=== PATIENT | male | born 1940 | race Caucasian/White ===

== ENCOUNTER 2020-11-07 17:16 | Inpatient (IN) | payer MEDICARE, OTHER, SELFPAY ==
[2020-11-07] VITALS (12 sets, daily range): BP systolic 160–191; BP diastolic 80–98; PULSE 61–74; RESP 16–20; TEMP 36.2–36.7; O2SAT 95–99; BMI 33.5; BMI 34.4; BMI 33.3; BMI 33.4
--- NOTE | 2020-11-07 17:17 | CT_ITS ---
STUDY: CT HEAD STROKE PROTOCOL W/O CONTRAST INJECTION REASON FOR EXAM: Male, 80 years old. STROKE, LEFT ARM WEAKNESS RADIATION DOSAGE (If Supplied By Facility): CTDIvol = ( 44.99 ) mGy, DLP = ( 863.60 ) mGycm TECHNIQUE: Transaxial CT imaging of the brain was performed without administration of intravenous contrast material. Individualized dose optimization techniques were used for this CT. COMPARISON: No relevant priors. FINDINGS: Normal soft tissue structures. Normal calvarium. There is mild cerebral atrophy with widening of the extra-axial spaces and ventricular dilatation. There are areas of decreased attenuation within the white matter tracts of the supratentorial brain, consistent with microvascular disease changes. Normal basal ganglia and thalami. Normal brainstem. Normal cerebellum. There is no intracranial hemorrhage. There are no findings of an acute ischemic infarction. Normal visualized paranasal sinuses. ASPECT score: CT/STROKE Brain/Head without Cont IMPRESSION: Chronic involutional changes of the brain. N.B. : The above information has been verbally conveyed by Rajesh Carvalho MD to EVAN santana, on 11/07/2020 17:41:04 (ET). Electronically Signed: Rajesh Carvalho MD at 17:41 EST Tel , Service support ,
--- NOTE | 2020-11-07 17:17 | EKG12_ITS ---
Test Reason : NUMB TING Blood Pressure : / mmHG Vent. Rate : 062 BPM Atrial Rate : 062 BPM P-R Int : 170 ms QRS Dur : 146 ms QT Int : 474 ms P-R-T Axes : 028 004 014 degrees QTc Int : 481 ms Normal sinus rhythm Right bundle branch block Abnormal ECG Confirmed by ROD BARBOSA, NEVAEH ([id number]), senior editor MOO RIVAS ([id number]) on 11/10/2020 10:30:16 AM Referred By: YANCY Confirmed By:NEVAEH VELASCO MD
[2020-11-07 17:30] LABS: Absolute Neutrophil Count 3.4 X10^3/uL (2.0-7.7); Basophil# 0.06 X10^3/uL; Basophil% 0.9 % (0-1); Eosinophil# 0.27 X10^3/uL; Eosinophils% 4.2 % (0-5); Hematocrit 40.3 % (40-54); Hemoglobin 13.3 g/dL (13.0-16.5); Lymphocyte % 29.4 % (19-41); Mean Corpuscular Hgb 31.3 pg (27.0-32.0); Mean Corpuscular Volume 94.8 fL (80-94); Mean Platelet Vol. 10.2 fl (6.2-12.0); Monocyte# 0.79 X10^3/uL; Monocyte% 12.2 % (0-10); NRBC Flagged by Analyzer 0 % (0-5); Neutrophil # 3.43 X10^3/uL (2.7-7.7); Neutrophil % 53.1 % (47-70); Platelet Count 293 K/mm3 (150-450); RBC Distribution Width CV 13.3 % (11.6-14.6); RBC Distribution Width SD 45.8 fl (35.1-43.9); Red Blood Count 4.25 M/mm3 (4.6-6.2); White Blood Count 6.5 K/mm3 (4.4-11.0)
[2020-11-07 17:47] LABS: Anion Gap 3 (5-15); BUN 12 mg/dL (7-18); BUN/Creat Ratio 16.9 RATIO (10-20); Calcium,Total 8.9 mg/dL (8.5-10.1); Chloride 108 mmol/L (98-107); Creatinine, Serum 0.71 mg/dL (0.70-1.30); EST Glomerular Filtration Rate 114 mL/min (>60); Est Glom Filt Rate - Afr Amer 138 mL/min (>60); Estimated Creatinine Clearance 64.84 ml/min; Glucose 96 mg/dL (74-106); Sodium Level 139 mmol/L (136-145)
[2020-11-07 17:50] LABS: Prothrombin Time (Protime)PT. 12.9 SECONDS (11.7-14.9)
--- NOTE | 2020-11-07 17:50 | CT_ITS ---
STUDY: CTA HEAD AND NECK WITH CONTRAST REASON FOR EXAM: Male, 80 years old. POSSIBLE STROKE RADIATION DOSAGE (If Supplied By Facility): CTDIvol = ( 20.62 ) mGy, DLP = ( 873.60 ) mGycm TECHNIQUE: CT angiography was performed with a multi-detector CT scanner. Data acquisition was obtained from the skull base through the vertex following intravenous administration of IV 100mL [id number]-300. MIP images were reconstructed from the axial data set. Post-processing of the angiographic images was performed, with multiplanar reformation and 3D reconstruction. Individualized dose optimization techniques were used for this CT. COMPARISON: No relevant priors. FINDINGS: Normal bilateral petrous carotid arteries. Normal right cavernous carotid artery with a normal supraclinoid bifurcation. Normal left cavernous carotid artery with a normal supraclinoid bifurcation. Normal right A1 segments of the anterior cerebral artery. Normal left A1 segments of the anterior cerebral artery. Normal intact anterior communicating artery (ACOM). Normal bilateral A2 segments of the anterior cerebral arteries. Normal right M1 and M2 segments of the middle cerebral arteries, with a normal M1 bifurcation. Normal left M1 and M2 segments of the middle cerebral arteries, with a normal M1 bifurcation. Normal right posterior communicating artery (PCOM). Normal left posterior communicating artery (PCOM). There is a small atretic left vertebral artery with a dominant right vertebral artery. The small left vertebral artery terminates as the left posterior inferior cerebral artery. Normal basilar artery with a normal basilar bifurcation. The visualized bilateral superior cerebellar (SCA) arteries are normal. Normal bilateral P1, P2 and visualized P3 segments of the posterior cerebral arteries. There is no demonstrated aneurysm of the [place] of [place]. There is no demonstrated abnormality of the visualized brain. AORTIC ARCH: Normal visualized aortic arch. Normal origins of the brachiocephalic, left common carotid, and left subclavian arteries. RIGHT CAROTID ARTERIES: Normal right common carotid artery (CCA). There is mild atherosclerotic plaque formation with minimal narrowing of the right carotid bulb. There is mild atherosclerotic plaque formation of the origin of the right internal carotid artery with less than 50% cross sectional diameter stenosis. Normal visualized cervical portion of the right internal carotid artery. Normal origin of the right external carotid artery (ECA). LEFT CAROTID ARTERIES: Normal left common carotid artery (CCA). Normal left common carotid bulb. Normal origin of the left internal carotid (ICA) artery without a hemodynamically significant stenosis. Normal visualized cervical portion of the left internal carotid artery. Normal origin of the left external carotid artery (ECA). VERTEBRAL ARTERIES: Normal bilateral vertebral arteries. CT/STROKE CTA Head AND Neck W/Con IMPRESSION: 1. Mild (40%) right carotid stenosis. 2. No left carotid stenosis. 3. Patent vertebral arteries bilaterally. The left vertebral artery is hypoplastic and terminates as the left posterior inferior cerebellar artery. 4. No intracranial stenosis or aneurysm. N.B. : The above information has been verbally conveyed by Rajesh Carvalho MD to EVAN santana, on 11/07/2020 18:40:42 (ET). Electronically Signed: Rajesh Carvalho MD at 18:42 EST Tel , Service support ,
[2020-11-07 17:51] LABS: Partial Thromboplast Time 26.2 Seconds (24.1-36.2)
--- NOTE | 2020-11-07 18:00 | ED.VISSUMM ---
- ER Visit Summary Date of Service: 11/07/20 Chief Complaint: Left upper and lower extremity weakness History of Present Illness: The patient is a [address] Jane in [place]. He reports that he was at his brother's viewing this afternoon when he began to feel lightheaded and his vision blurred. He then states that his left arm and leg became numb and he was unable to move them. This started approximately 1615. Shortly after EMS arrived his symptoms resolved. He denies any neurologic symptoms at this time. Squad reports that he was off balance when they stood him to get on the cot. Patient denies any other recent illness. No fever or chills. No chest pain, cough, or difficulty breathing. He reports he had a similar episode and went to another hospital 1 week ago. He was not admitted at that time. He does have a history of a stroke back in 2011. Physical Examination: Vitals: Stable. Afebrile. General: Well-nourished and well-developed. Head: Normocephalic atraumatic. Neck: Supple, no lymphadenopathy. No JVD. Nontender. Cardiovascular: Regular rate and rhythm. No murmurs. Respiratory: No respiratory distress. Clear to auscultation bilaterally. Abdominal: Soft, nontender, nondistended, normal bowel sounds. No guarding, rebound, or peritoneal signs. Back: Nontender. Extremities: Nontender, no edema. Skin: Normal color, no rash. Neurologic: Alert and oriented ?3. Cranial nerves II through XII are intact. Normal strength and sensation. NIH is 0. Psych: Normal affect. Test Results: EKG is sinus at 62 with a right bundle branch block. No ischemic changes. CBC shows monocytes of 12. Chem-7 shows a chloride of 108. INR is 1.0. PTT is 26.2. Troponin is negative. Clinical Impression(s) from Imaging Studies Brain CT 11/07/20 17:17 IMPRESSION: Chronic involutional changes of the brain. N.B. : The above information has been verbally conveyed by Rajesh Carvalho MD to EVAN santana, on 11/07/2020 17:41:04 (ET). Electronically Signed: Rajesh Carvalho MD at 17:41 EST Tel , Service support , ADDENDUM: 11/07/20 1748 IMPRESSION: Chronic involutional changes of the brain. N.B. : The above information has been verbally conveyed by Rajesh Carvalho MD to EVAN santana, on 11/07/2020 17:41:04 (ET). Electronically Signed: Rajesh Carvalho MD at 17:41 EST Tel , Service support , Head/Neck CTA 11/07/20 17:50 IMPRESSION: 1. Mild (40%) right carotid stenosis. 2. No left carotid stenosis. 3. Patent vertebral arteries bilaterally. The left vertebral artery is hypoplastic and terminates as the left posterior inferior cerebellar artery. 4. No intracranial stenosis or aneurysm. N.B. : The above information has been verbally conveyed by Rajesh Carvalho MD to EVAN santana, on 11/07/2020 18:40:42 (ET). Electronically Signed: Rajesh Carvalho MD at 18:42 EST Tel , Service support , ADDENDUM: 11/07/20 1849 IMPRESSION: 1. Mild (40%) right carotid stenosis. 2. No left carotid stenosis. 3. Patent vertebral arteries bilaterally. The left vertebral artery is hypoplastic and terminates as the left posterior inferior cerebellar artery. 4. No intracranial stenosis or aneurysm. N.B. : The above information has been verbally conveyed by Rajesh Carvalho MD to EVAN santana, on 11/07/2020 18:40:42 (ET). Electronically Signed: Rajesh Carvalho MD at 18:42 EST Tel , Service support , Chest X-Ray 11/07/20 18:05 IMPRESSION: Normal x-ray examination of the chest. Electronically Signed: Rajesh Carvalho MD at 18:19 EST Tel , Service support , Emergency Department Course and Treatment: Patient was seen upon arrival approximately an hour after onset of symptoms. His symptoms have completely resolved and his NIH scale is 0. He was discussed with the neurologist from [facility] who is also examined him. He is not a TPA candidate. I was in talking with the patient at 1845 and he was completely normal. His arrived at 1850 he complained that he was unable to lift his left leg again. Repeat NIH score was 4. I paged the neurologist and the nurse went in to examine him and his symptoms had completely resolved by 1900. His NIH scale is 0 again. The patient was discussed with the neurologist from [facility] again. She reports that with an NIH of 0 she would not give TPA at this time. However, because his NIH is 0 his timeframe resets and that if he has weakness again that she should be contacted for further consultation about the possibility of TPA. Treatment Plan: The patient was discussed with Dr. Ceballos and will be admitted for further evaluation and treatment. His NIH scale remains 0. Disposition: Admitted in stable condition. Impression: 1. Left sided weakness. 2. Right internal carotid artery 40% stenosis. 3. Critical care time 33 minutes. This note was generated with Gamblino[employer] software. It may contain incorrect words, spelling, and punctuation that were not noted in review of the chart prior to signing ED Disposition - Plan for ED Patient: Referrals: Evangleista Jane DO [Primary Care Provider] -
--- NOTE | 2020-11-07 18:05 | RAD_ITS ---
STUDY: X-RAY CHEST REASON FOR EXAM: Male, 80 years old. Neuro deficit, acute, stroke suspected TECHNIQUE: Single AP portable view of the chest. COMPARISON: None. FINDINGS: Status post anterior cervical discectomy and fusion in the lower cervical spine. The lungs are clear and expanded. There is no demonstrated pleural abnormality. Normal size heart. Normal mediastinum and cal. Normal visualized pulmonary arteries. Normal visualized aortic arch and descending thoracic aorta. Normal visualized thoracic spine. Normal visualized ribs, clavicles, and shoulders. There is no demonstrated abnormality of the visualized soft tissue structures of the upper abdomen. RAD/Chest 1 View IMPRESSION: Normal x-ray examination of the chest. Electronically Signed: Rajesh Carvalho MD at 18:19 EST Tel , Service support ,
--- NOTE | 2020-11-07 19:25 | PCM.HP.STD ---
Problem List (1) TIA (transient ischemic attack) Status: Inactive (2) Hypertension Status: Chronic Qualifiers: Hypertension type: essential hypertension Qualified Code(s): I10 - Essential (primary) hypertension History of Present Illness Date of Admission: 11/07/20 Chief Complaint: Left-sided weakness The patient is a 80 year old M with past medical history of TIA, history of multiple surgeries to the neck and back who lives in [facility] and was induced for his brother's phone. He was sitting during the service, when his son noticed that his left-side was weak. She stated that he felt lightheaded and his vision was blurred. His left arm in leg became numb he was unable to move it. States her pain around 1615. It lasted for a few minutes. It resolved completely by the time the EMS got there. Reported that he was ataxic for the EMS. Has a history of mini stroke in 2011. He has history of recurrent neck and back pains. Patient's admitting NIHSS was 0 at the time of being seen. He was said not to be a TPA candidate. However at 1845, and was noted not to be able to lift his left leg again. Repeat NIHSS score was 4. The neurologist was paged. Reexam showed NIHSS score of 0. [facility] neurologist told ED physician that showed patient have symptoms again, they should be contacted for possibility of TPA. Patient denied any symptoms at the time of being seen. Vitals were stable except for uncontrolled hypertension. Admitting blood work was also unremarkable. Brain CT showed chronic involuntary changes. CTA of the head and neck showed right carotid stenosis, 40%. EKG showed normal sinus rhythm, no ST-T changes. Past Medical History Past Medical History (Chronic Problems): Chronic Problems Hypertension (Chronic) Allergies No Known Allergies Allergy (Verified 11/07/20 17:41) Home Medications: Ambulatory Orders Medication Instructions Recorded Aspirin 325 mg PO DAILY@0800 11/07/20 Lisinopril 20 mg PO DAILY 11/07/20 Multivit-Min/FA/Lycopen/Lutein 1 ea PO DAILY 11/07/20 [Centrum Silver Men Tablet] Psyllium Husk/Aspartame [Metamucil 1,320 gm PO DAILY 11/07/20 Powder] Surgical History: cholecystectomy, total knee arthroplasty - Bilateral, - - Multiple back and neck surgeries Psychiatric History: No pertinent psych hx Lives: Spouse/ Significant Other Smoking Status: Never smoker Tobacco Use: Non-smoker Alcohol: None Drugs: None - *Family History Maternal History Items: Heart Disease Paternal History Items: Unknown Review of Systems Constitutional: Denies: Anorexia, Chills, Fever, Malaise, Weakness, Weight Change, Fatigue Eyes: Denies: Blurred vision, Cataracts, Conjunctivae Inflammation, Pain, Redness, Vision Change HEENT: Reports: Hard of Hearing. Denies: Difficulty Hearing, Difficulty Swallowing, Head Aches, Hearing Changes, Sinus Congestion, Sinus Drainage Cardiovascular: Denies: Chest Pain, Claudication, Orthopnea, Palpitations, Paroxysmal Noc. Dyspnea Respiratory: Denies: Cough, Hemoptysis, Shortness of breath at rest, Shortness of breath upon exertion, Sputum production Gastrointestinal: Denies: Abdominal Pain, Hematemesis, Hematochezia, Nausea, Vomiting Genitourinary: Denies: Dysuria, Frequency, Incontinence Musculoskeletal: Denies: Joint Pain, Joint stiffness, Joint swelling, Joint Tenderness, Muscle pain Skin: Denies: Dryness, Pruritis, Rash, Wounds Neurological: Denies: Difficulty swallowing, Focal weakness, Numbness, Tingling Psychiatric: Denies: Anxiety, Depression, Homicidal Ideations, Suicidal Ideations Hematologic/ Lymphatic: Denies: Easy Bruising, Easy Bleeding VTE Information - Inpt Only VTE Present on Admission: No VTE Pharm Prophylaxis ordered?: Yes - Physical Exam Vitals/I&O's: Vital Signs Temp Pulse Resp BP Pulse Ox 97.1 F L 63 16 160/84 H 98 11/07/20 17:34 11/07/20 19:00 11/07/20 19:00 11/07/20 19:00 11/07/20 19:00 Oxygen Delivery Method Room Air Weight: 112.2 kg Body Mass Index (BMI) 34.4 Finger Stick Blood Glucose 98 General: Alert, Oriented x3, Cooperative, No apparent distress, - - obese HEENT: Atraumatic, PERRLA, EOMI, Normocephalic Oral: Moist Mucosa Neck: Supple Lungs: Clear to auscultation, Normal air movement Cardiovascular: Regular rate, Regular Rhythm, Normal S1, Normal S2, No murmurs Abdomen: Bowel Sounds Present, Soft, Non Tender, Non-Distended, No Hepato-splenomegaly Extremities: No edema Skin: No rashes Musculoskeletal: No Tenderness to Palpation of Joints or Extremities Lymphatic: No Cervical, Supraclavicular, or Inguinal Adenopathy Neurological: Cranial nerves II-XII grossly intact, Neuro grossly intact Psych/Mental Status: Normal Affect, Appropriate Laboratory Results 11/07/20 17:10: WBC 6.5, RBC 4.25 L, Hgb 13.3, Hct 40.3, MCV 94.8 H, MCH 31.3, MCHC 33.0, RDW Std Deviation 45.8 H, RDW Coeff of Alfonzo 13.3, Plt Count 293, MPV 10.2, Immature Gran % (Auto) 0.200, Neut % (Auto) 53.1, Lymph % (Auto) 29.4, [place] % (Auto) 12.2 H, Eos % (Auto) 4.2, Baso % (Auto) 0.9, Absolute Neuts (auto) 3.4, Absolute Lymphs (auto) 1.90, Nucleated RBC % 0 11/07/20 17:10: PT Cancelled, INR Cancelled, APTT Cancelled 11/07/20 17:10: Sodium 139, Potassium 4.0, Chloride 108 H, Carbon Dioxide 28.0, Anion Gap 3 L, BUN 12, Creatinine 0.71, Estim Creat Clear Calc 64.84, Est GFR (MDRD) Af Amer 138, Est GFR (MDRD) Non-Af 114, BUN/Creatinine Ratio 16.9, Glucose 96, Calcium 8.9, Troponin I < 0.015 11/07/20 17:25: PT 12.9, INR 1.0, APTT 26.2 Current Medications Labetalol HCl (Labetalol (Prefilled) 20 Mg/4 Ml) 20 mg IV X1 PRN PRN Reason: Blood Pressure Assessment/Plan 1. Acute onset of left-sided weakness, recurrent/stuttering, concerning for TIA/CVA CT of the head showed chronic involuntary changes.CTA of the head and neck showed right carotid stenosis, 40%. Patient has multiple cardiovascular risk factors -history of TIA Admitting NIHSS score was 0, his NIHSS score was 4 at 1845 Patient stated that he has multiple plate and screws from back surgeries; he however had an MRI in June 2020 for head and neck, Will get 2D echo, lipid profile in am, HbA1c Consider repeat CT scan(if patient cannot have an MRI) as well as SOC consult in a.m. Continue on aspirin, statin 2. Hypertension, uncontrolled, will allow for permissive hypertension Labetalol as needed for blood pressure more than 220 3. DVT prophylaxis with heparin subcu 4. CODE STATUS: DNR CCA I discussed and explained in details the various types of CODE STATUS-full code, DNR CCA, DNR CC. Patient chose DNR CCA. He stated that in the event of a cardiopulmonary arrest, he would like to be made comfortable as he thinks that will be his time. Time spent discussing CODE STATUS 17 minutes Inpatient E&M: 73190 Init Hosp L3 Procedures: 65611 Advncd Care Plan 30 Min
[2020-11-07] MEDS: Famotidine 20 MG Tablet PO (22:33)
[2020-11-07] MEDS: Heparin Injection (Vial) 5,000 UNIT/ML VIAL 5000 UNIT SC (22:33)
[2020-11-07 23:09] LABS: AST(SGOT) 24 U/L (15-37); Alanine Aminotransfer ALT/SGPT 43 U/L (16-61); Albumin, Serum 3.4 g/dL (3.2-5.0); Alkaline Phosphatase 63 U/L (45-117); Bilirubin, Direct 0.07 mg/dL (0.00-0.30); Globulin 3.6 g/dL (2.2-4.2)
[2020-11-08] VITALS (7 sets, daily range): BP systolic 143–158; BP diastolic 77–89; PULSE 56–67; RESP 16–18; TEMP 36.3–37.1; O2SAT 96–98
[2020-11-08 02:08] LABS: Absolute Lymphocyte Count 2.29 X10^3/uL (0.83-4.51); Basophil# 0.05 X10^3/uL; Basophil% 0.8 % (0-1); Eosinophil# 0.29 X10^3/uL; Eosinophils% 4.5 % (0-5); Hemoglobin 12.5 g/dL (13.0-16.5); Lymphocyte # 2.29 X10^3/ul (4.0); Lymphocyte % 35.3 % (19-41); Mean Corp Hgb Conc 33.8 g/dL (32-36); Mean Corpuscular Hgb 31.6 pg (27.0-32.0); Mean Corpuscular Volume 93.7 fL (80-94); Monocyte# 0.87 X10^3/uL; Monocyte% 13.4 % (0-10); NRBC Flagged by Analyzer 0 % (0-5); Neutrophil # 2.97 X10^3/uL (2.7-7.7); Neutrophil % 45.8 % (47-70); Platelet Count 270 K/mm3 (150-450); RBC Distribution Width CV 13.2 % (11.6-14.6); RBC Distribution Width SD 45.4 fl (35.1-43.9); Red Blood Count 3.95 M/mm3 (4.6-6.2); White Blood Count 6.5 K/mm3 (4.4-11.0)
[2020-11-08 02:24] LABS: AST(SGOT) 22 U/L (15-37); Alanine Aminotransfer ALT/SGPT 40 U/L (16-61); Albumin, Serum 3.4 g/dL (3.2-5.0); Alkaline Phosphatase 62 U/L (45-117); Anion Gap 5 (5-15); BUN 13 mg/dL (7-18); BUN/Creat Ratio 20.5 RATIO (10-20); Calcium,Total 8.5 mg/dL (8.5-10.1); Chloride 111 mmol/L (98-107); Cholesterol 220 mg/dL (200); Creatinine, Serum 0.63 mg/dL (0.70-1.30); EST Glomerular Filtration Rate 130 mL/min (>60); Est Glom Filt Rate - Afr Amer 157 mL/min (>60); Estimated Creatinine Clearance 64.84 ml/min; Globulin 3.5 g/dL (2.2-4.2); Glucose 90 mg/dL (74-106); High Density Lipoprotein 31 mg/dL; Potassium 3.8 mmol/L (3.5-5.1); Protein, Total 6.9 g/dL (6.4-8.2); Sodium Level 141 mmol/L (136-145); Triglycerides 297 mg/dL; Very Low Density Lipoprotein 59 mg/dL (5-40)
[2020-11-08] MEDS: Acetaminophen 325 MG Tablet 650 MG PO (03:20)
[2020-11-08] MEDS: Heparin Injection (Vial) 5,000 UNIT/ML VIAL 5000 UNIT SC (05:25)
--- NOTE | 2020-11-08 05:55 | MRI_ITS ---
STUDY: MRI BRAIN WITHOUT CONTRAST REASON FOR EXAM: Male, 80 years old. neuro deficit, left sided weakness, stuttering TECHNIQUE: Standardized multiplanar fat and water weighted pulse sequences were obtained. COMPARISON: CT 11/07/2020 FINDINGS: There is moderate cerebral atrophy with widening of the extra-axial spaces and ventricular dilatation. There are a limited number of small white matter hyperintensities, distributed throughout the deep white matter tracts of the cerebral hemispheres, consistent with mild chronic white matter ischemic changes. There is no evidence for recent intracranial ischemia or other cause of cytotoxic edema on diffusion weighted imaging (DWI). Normal T2* images of the brain without demonstrated susceptibility artifact. There is no demonstrated hemosiderin stain. Normal bilateral basal ganglia. Normal thalami. There is no extra-axial fluid accumulation. Normal flow voids within the major intracranial circulation suggesting patency by spin echo criteria. Normal sella turcica, pituitary gland, infundibular stalk, optic chiasm and hypothalamus. Normal tectal plate and pineal gland. Normal midbrain, giuseppe and medulla. Normal cerebellum. Normal basal cisterns. Normal bilateral temporal bones. Normal bilateral internal auditory canals. There are bilateral ocular lens implants with otherwise normal intraorbital contents. Mucous retention cysts within the maxillary sinuses bilaterally consistent with chronic sinusitis. Normal calvarium and skull base. Normal visualized soft tissue structures. Normal visualized upper cervical spine. MRI/Brain without Contrast IMPRESSION: Involutional changes of the brain, as described above. No acute infarct. Electronically Signed: Rajesh Carvalho MD at 12:25 EST Tel , Service support ,
[2020-11-08] MEDS: Famotidine 20 MG Tablet PO (10:15)
[2020-11-08] MEDS: Aspirin 325 MG Tablet PO (10:15)
[2020-11-08] MEDS: LORazepam 2 MG/ML Syringe 0.5 MG IV (10:42)
[2020-11-08] MEDS: 0.9% Saline Lock 10 ML Syringe IV (10:42)
--- NOTE | 2020-11-08 12:09 | NURSING ---
Patient observed during MRI procedure VS as follows 1112 154/62, HR 62 SPO2 98% RA 1115 141/70 66 97% 1120 138/66 65 97% 1125 139/64 65 97% 1130 126/66 70 96%
--- NOTE | 2020-11-08 12:16 | NURSING ---
1135 127/74 HR 71 spo2 98% 1140 121/70 HR 63 96% Patient tolerated procedure very well , monitor remained sinus rhythm throughout procedure.
--- NOTE | 2020-11-08 13:09 | DCINST_ITS ---
- Discharge Diagnoses Current Active Problems: Current Active and Chronic Problems Hypertension (Chronic) You will use the following diet at home:: Cardiac Your food should be the consistency of: Regular Your liquids should be the consistency of: Regular/Thin Discharge Activity: Return to Normal Activity Allergies/Adverse Reactions: Allergies No Known Allergies Allergy (Verified 11/07/20 17:41) Medications to take at Discharge Aspirin 325 mg PO DAILY@0800 11/07/20 Lisinopril 20 mg PO DAILY 11/07/20 Multivit-Min/FA/Lycopen/Lutein [Centrum Silver Men Tablet] 1 ea PO DAILY 11/07/20 Psyllium Husk/Aspartame [Metamucil Powder] 1,320 gm PO DAILY 11/07/20 Atorvastatin Calcium 40 mg PO DAILY #30 tab 11/08/20 Ubidecarenone/Vit E Acet [Co Q-10 100 mg Softgel] 1 ea PO DAILY #30 cap 11/08/20 The following prescriptions were given: Atorvastatin Calcium 40 mg PO DAILY #30 tab Prescription Printed Ubidecarenone/Vit E Acet [Co Q-10 100 mg Softgel] 1 ea PO DAILY #30 cap Prescription Printed Primary Care Physician: Evangelista Jane DO [Primary Care Provider] - Please follow up with your Primary Care Physician in: 1-2 weeks Test Results: Test results from this visit will be discussed in further detail at your follow- up appointment, if applicable. Please Follow Up With: Ankur Frost MD - Neurology When: 2 weeks Proposed Discharge Date: 11/08/20
--- NOTE | 2020-11-08 13:10 | DS.PCM_ITS ---
<Shantanu Cohen - Last Filed: 11/08/20 13:10> Discharge Date and Diagnosis Date of Admission: 11/07/20 Date of Discharge: 11/08/20 - Primary Discharge Diagnosis Acute Problems: TIA - Secondary Discharge Diagnosis Chronic Problems: Chronic Problems Hypertension (Chronic) Hospital Course and Treatment Imaging Results: 11/08/20 05:55 Brain without Contrast [MRI] AM (NON MEDS) CT/STROKE Brain/Head without Cont IMPRESSION: Chronic involutional changes of the brain. CT/STROKE CTA Head AND Neck W/Con IMPRESSION: 1. Mild (40%) right carotid stenosis. 2. No left carotid stenosis. 3. Patent vertebral arteries bilaterally. The left vertebral artery is hypoplastic and terminates as the left posterior inferior cerebellar artery. 4. No intracranial stenosis or aneurysm. RAD/Chest 1 View IMPRESSION: Normal x-ray examination of the chest. MRI/Brain without Contrast IMPRESSION: Involutional changes of the brain, as described above. No acute infarct. Operations: None Procedures: None Summary of Care Provided: Hospital Course: The patient is a 80 year old M with pmhx of prior stroke, HTN, HLD, who presented to the ER with complaints of left-sided weakness. Patient was at his brother's when he felt his left side become weak. He had some lightheadedness and blurry vision at the same time. This was in his arm and leg. He said it felt like he had weights attached to his extremities. He was brought to the ER was not felt to be a TPA candidate. CT of the brain showed chronic changes CTA of the head and neck showed right carotid stenosis of 40%. EKG showed sinus rhythm. He was admitted for stroke versus TIA. He underwent an MRI of the brain which was negative for an acute infarct. He had no A. fib on the monitor. It was felt that he had a TIA. Despite his prior stroke he was not taking a statin at home due to myalgias in the past. He was taking aspirin only. It was recommended he continue aspirin, and initiate statin therapy. He was given a prescription for co-Q10 as well with hopes that it might mitigate some of his myalgias. He was advised to follow-up with neurology in 2 weeks. He had no symptoms at the time of discharge. He was discharged home in stable condition. He will also need follow-up with PCP in 1 to 2 weeks. This patient was seen by Shantanu Cohen PA-C under the supervision of Doctor Dev. [] - Physical Exam Vitals/I&O's: Vital Signs Temp Pulse Resp BP Pulse Ox 97.4 F L 62 18 155/89 H 98 11/08/20 08:40 11/08/20 08:40 11/08/20 08:40 11/08/20 08:40 11/08/20 08:40 Oxygen Delivery Method Room Air Weight: 236 lb 15.951 oz Body Mass Index (BMI) 33.3 Finger Stick Blood Glucose 98 Intake and Output for Last 24 Hours 11/06/20 11/07/20 11/08/20 23:59 23:59 23:59 Intake Total 320 / 320 Balance 320 / 320 General: Alert, Oriented x3, Cooperative HEENT: Atraumatic, PERRLA, EOMI, Normocephalic Neck: Supple, No JVD, Negative Carotid Bruits Lungs: Clear to auscultation, Normal air movement Cardiovascular: Regular rate, No murmurs Abdomen: Bowel Sounds Present, Soft, Non Tender Extremities: No edema, Capillary Refill Less than 3 Seconds Skin: No rashes, No breakdown Musculoskeletal: No Tenderness to Palpation of Joints or Extremities Neurological: Cranial nerves II-XII grossly intact Psych/Mental Status: Normal Affect, Appropriate, Alert and oriented to time, place, person, mood and affect Laboratory Results 11/07/20 17:10: WBC 6.5, RBC 4.25 L, Hgb 13.3, Hct 40.3, MCV 94.8 H, MCH 31.3, MCHC 33.0, RDW Std Deviation 45.8 H, RDW Coeff of Alfonzo 13.3, Plt Count 293, MPV 10.2, Immature Gran % (Auto) 0.200, Neut % (Auto) 53.1, Lymph % (Auto) 29.4, [place] % (Auto) 12.2 H, Eos % (Auto) 4.2, Baso % (Auto) 0.9, Absolute Neuts (auto) 3.4, Absolute Lymphs (auto) 1.90, Nucleated RBC % 0 11/07/20 17:10: PT Cancelled, INR Cancelled, APTT Cancelled 11/07/20 17:10: Sodium 139, Potassium 4.0, Chloride 108 H, Carbon Dioxide 28.0, Anion Gap 3 L, BUN 12, Creatinine 0.71, Estim Creat Clear Calc 64.84, Est GFR (MDRD) Af Amer 138, Est GFR (MDRD) Non-Af 114, BUN/Creatinine Ratio 16.9, Glucose 96, Calcium 8.9, Troponin I < 0.015 11/07/20 17:25: PT 12.9, INR 1.0, APTT 26.2 11/07/20 22:11: Total Bilirubin 0.20, Direct Bilirubin 0.07, AST 24, ALT 43, Alkaline Phosphatase 63, Troponin I < 0.015, Total Protein 7.0, Albumin 3.4, Globulin 3.6 11/08/20 02:00: WBC 6.5, RBC 3.95 L, Hgb 12.5 L, Hct 37.0 L, MCV 93.7, MCH 31.6, MCHC 33.8, RDW Std Deviation 45.4 H, RDW Coeff of Alfonzo 13.2, Plt Count 270, MPV 10.0, Immature Gran % (Auto) 0.200, Neut % (Auto) 45.8 L, Lymph % (Auto) 35.3, [place] % (Auto) 13.4 H, Eos % (Auto) 4.5, Baso % (Auto) 0.8, Absolute Neuts (auto) 3.0, Absolute Lymphs (auto) 2.29, Nucleated RBC % 0 11/08/20 02:00: Sodium 141, Potassium 3.8, Chloride 111 H, Carbon Dioxide 25.0, Anion Gap 5, BUN 13, Creatinine 0.63 L, Estim Creat Clear Calc 64.84, Est GFR (MDRD) Af Amer 157, Est GFR (MDRD) Non-Af 130, BUN/Creatinine Ratio 20.5 H, Glucose 90, Calcium 8.5, Total Bilirubin 0.20, AST 22, ALT 40, Alkaline Phosphatase 62, Total Protein 6.9, Albumin 3.4, Globulin 3.5, Albumin/Globulin R atio 1.0, Triglycerides 297 H, Cholesterol 220 H, LDL Cholesterol 130, VLDL Cholesterol 59 H, HDL Cholesterol 31 L 11/08/20 02:00: Troponin I < 0.015 Current Medications Acetaminophen (Acetaminophen 325 Mg Tablet) 650 mg PO Q6H PRN PRN PRN Reason: Pain Score 1-10/Temp > 100.7 F Last Admin: 11/08/20 03:20 Dose: 650 mg Documented by: Aspirin (Aspirin 325 Mg Tablet) 325 mg PO DAILY@0800 [facility] Last Admin: 11/08/20 10:15 Dose: 325 mg Documented by: Atorvastatin Calcium (Atorvastatin Calcium 80 Mg Tablet) 80 mg PO QHS [facility] Last Admin: 11/07/20 22:36 Dose: Not Given Documented by: Famotidine (Famotidine 20 Mg Tablet) 20 mg PO BID [facility] Last Admin: 11/08/20 10:15 Dose: 20 mg Documented by: Heparin Sodium (Porcine) (Heparin Injection (Vial) 5,000 Unit/Ml Vial) 5,000 unit SC Q8 [facility] Last Admin: 11/08/20 05:25 Dose: 5,000 unit Documented by: Sodium Chloride () 250 mls @ 15 mls/hr IV .[id number] PRN PRN Reason: Saline Flush Sodium Chloride () 250 mls @ 15 mls/hr IV .[id number] PRN PRN Reason: Additional IVPB Infusion Labetalol HCl (Labetalol (Prefilled) 20 Mg/4 Ml) 10 - 20 mg IV Q10M PRN PRN PRN Reason: to Maintain BP Goals Magnesium Hydroxide (Magnesium Hydroxide 30 Ml Udc) 30 ml PO DAILY PRN PRN PRN Reason: Constipation Ondansetron HCl (Ondansetron 4 Mg/2 Ml Vial) 4 mg IV Q8H PRN PRN PRN Reason: NAUSEA/VOMITING Polyethylene Glycol (Polyethylene Glycol 3350 17 Gm Packet) 17 gm PO DAILY PRN PRN PRN Reason: Constipation Psyllium Hydrophilic Mucilloid (Psyllium 1 Packet) 1 packet PO DAILY [facility] Sodium Chloride (0.9% Saline Lock 10 Ml Syringe) 10 - 40 ml IV UD PRN PRN Reason: SALINE FLUSH Last Admin: 11/08/20 10:42 Dose: 20 ml Documented by: Discharge Diet: Low fat/ Low Cholesterol, 2000 mg Sodium Diet Discharge Activity: Return to Normal Activity Home Medications: Medications to take at Discharge Aspirin 325 mg PO DAILY@0800 11/07/20 Lisinopril 20 mg PO DAILY 11/07/20 Multivit-Min/FA/Lycopen/Lutein [Centrum Silver Men Tablet] 1 ea PO DAILY 11/07/20 Psyllium Husk/Aspartame [Metamucil Powder] 1,320 gm PO DAILY 11/07/20 Atorvastatin Calcium 40 mg PO DAILY #30 tab 11/08/20 Ubidecarenone/Vit E Acet [Co Q-10 100 mg Softgel] 1 ea PO DAILY #30 cap 11/08/20 Following Prescriptions Were Given to Patient: Atorvastatin Calcium 40 mg PO DAILY #30 tab Prescription Printed Ubidecarenone/Vit E Acet [Co Q-10 100 mg Softgel] 1 ea PO DAILY #30 cap Prescription Printed Primary Care Physician: Evangelista Jane DO [Primary Care Provider] - Please follow up with your Primary Care Physician in: 1-2 weeks Please Follow Up With: Ankur Frost MD - Neurology When: 2 weeks Disposition: Home Minutes spent on discharge:: 35 Patient Condition:: Stable Medical Necessity - Tobacco Use Smoking Status: Never smoker Tobacco Use: Non-smoker Meaningful Use Info Meaningful Use Diagnoses (Choose all that apply): None applicable <Pacheco Méndez F - Last Filed: 11/08/20 13:55> Discharge Date and Diagnosis - Secondary Discharge Diagnosis Chronic Problems: Chronic Problems Hypertension (Chronic) Hospital Course and Treatment Imaging Results: 11/08/20 05:55 Brain without Contrast [MRI] AM (NON MEDS) Summary of Care Provided: The patient is a 80 year old M [] - Physical Exam Vitals/I&O's: Vital Signs Temp Pulse Resp BP Pulse Ox 97.4 F L 62 18 155/89 H 98 11/08/20 08:40 11/08/20 08:40 11/08/20 08:40 11/08/20 08:40 11/08/20 08:40 Oxygen Delivery Method Room Air Weight: 236 lb 15.951 oz Body Mass Index (BMI) 33.3 Finger Stick Blood Glucose 98 Intake and Output for Last 24 Hours 11/06/20 11/07/20 11/08/20 23:59 23:59 23:59 Intake Total 320 / 320 Balance 320 / 320 Laboratory Results 11/07/20 17:10: WBC 6.5, RBC 4.25 L, Hgb 13.3, Hct 40.3, MCV 94.8 H, MCH 31.3, MCHC 33.0, RDW Std Deviation 45.8 H, RDW Coeff of Alfonzo 13.3, Plt Count 293, MPV 10.2, Immature Gran % (Auto) 0.200, Neut % (Auto) 53.1, Lymph % (Auto) 29.4, [place] % (Auto) 12.2 H, Eos % (Auto) 4.2, Baso % (Auto) 0.9, Absolute Neuts (auto) 3.4, Absolute Lymphs (auto) 1.90, Nucleated RBC % 0 11/07/20 17:10: PT Cancelled, INR Cancelled, APTT Cancelled 11/07/20 17:10: Sodium 139, Potassium 4.0, Chloride 108 H, Carbon Dioxide 28.0, Anion Gap 3 L, BUN 12, Creatinine 0.71, Estim Creat Clear Calc 64.84, Est GFR (MDRD) Af Amer 138, Est GFR (MDRD) Non-Af 114, BUN/Creatinine Ratio 16.9, Glucose 96, Calcium 8.9, Troponin I < 0.015 11/07/20 17:25: PT 12.9, INR 1.0, APTT 26.2 11/07/20 22:11: Total Bilirubin 0.20, Direct Bilirubin 0.07, AST 24, ALT 43, Alkaline Phosphatase 63, Troponin I < 0.015, Total Protein 7.0, Albumin 3.4, Globulin 3.6 11/08/20 02:00: WBC 6.5, RBC 3.95 L, Hgb 12.5 L, Hct 37.0 L, MCV 93.7, MCH 31.6, MCHC 33.8, RDW Std Deviation 45.4 H, RDW Coeff of Alfonzo 13.2, Plt Count 270, MPV 10.0, Immature Gran % (Auto) 0.200, Neut % (Auto) 45.8 L, Lymph % (Auto) 35.3, [place] % (Auto) 13.4 H, Eos % (Auto) 4.5, Baso % (Auto) 0.8, Absolute Neuts (auto) 3.0, Absolute Lymphs (auto) 2.29, Nucleated RBC % 0 11/08/20 02:00: Sodium 141, Potassium 3.8, Chloride 111 H, Carbon Dioxide 25.0, Anion Gap 5, BUN 13, Creatinine 0.63 L, Estim Creat Clear Calc 64.84, Est GFR (MDRD) Af Amer 157, Est GFR (MDRD) Non-Af 130, BUN/Creatinine Ratio 20.5 H, Glucose 90, Calcium 8.5, Total Bilirubin 0.20, AST 22, ALT 40, Alkaline Donny sphatase 62, Total Protein 6.9, Albumin 3.4, Globulin 3.5, Albumin/Globulin Ratio 1.0, Triglycerides 297 H, Cholesterol 220 H, LDL Cholesterol 130, VLDL Cholesterol 59 H, HDL Cholesterol 31 L 11/08/20 02:00: Troponin I < 0.015 Current Medications Acetaminophen (Acetaminophen 325 Mg Tablet) 650 mg PO Q6H PRN PRN PRN Reason: Pain Score 1-10/Temp > 100.7 F Last Admin: 11/08/20 03:20 Dose: 650 mg Documented by: Aspirin (Aspirin 325 Mg Tablet) 325 mg PO DAILY@0800 [facility] Last Admin: 11/08/20 10:15 Dose: 325 mg Documented by: Atorvastatin Calcium (Atorvastatin Calcium 80 Mg Tablet) 80 mg PO QHS [facility] Last Admin: 11/07/20 22:36 Dose: Not Given Documented by: Famotidine (Famotidine 20 Mg Tablet) 20 mg PO BID [facility] Last Admin: 11/08/20 10:15 Dose: 20 mg Documented by: Heparin Sodium (Porcine) (Heparin Injection (Vial) 5,000 Unit/Ml Vial) 5,000 unit SC Q8 [facility] Last Admin: 11/08/20 05:25 Dose: 5,000 unit Documented by: Sodium Chloride () 250 mls @ 15 mls/hr IV .[id number] PRN PRN Reason: Saline Flush Sodium Chloride () 250 mls @ 15 mls/hr IV .[id number] PRN PRN Reason: Additional IVPB Infusion Labetalol HCl (Labetalol (Prefilled) 20 Mg/4 Ml) 10 - 20 mg IV Q10M PRN PRN PRN Reason: to Maintain BP Goals Magnesium Hydroxide (Magnesium Hydroxide 30 Ml Udc) 30 ml PO DAILY PRN PRN PRN Reason: Constipation Ondansetron HCl (Ondansetron 4 Mg/2 Ml Vial) 4 mg IV Q8H PRN PRN PRN Reason: NAUSEA/VOMITING Polyethylene Glycol (Polyethylene Glycol 3350 17 Gm Packet) 17 gm PO DAILY PRN PRN PRN Reason: Constipation Psyllium Hydrophilic Mucilloid (Psyllium 1 Packet) 1 packet PO DAILY [facility] Sodium Chloride (0.9% Saline Lock 10 Ml Syringe) 10 - 40 ml IV UD PRN PRN Reason: SALINE FLUSH Last Admin: 11/08/20 10:42 Dose: 20 ml Documented by: Addendum: Dr. Méndez I personally examined the patient and reviewed the chart. I agree with the above. 80-year-old male presented with left-sided weakness. This occurred while at his brother's weight, the is today at 2:00. He states that the symptoms have completely resolved but he has had a stroke previous to this. Unfortunately he was unable to tolerate statins in the past due to myalgias however he is willing to try statins again this time with co-Q10 to see if this helps with his symptom management. He is also on aspirin, and he did increase to 325 mg daily which I do recommend that he continue with. As well as a statin. I do recommend he follow-up with a neurologist as an outpatient as well as his PCP in 3 to 5 days. The MRI was unremarkable and telemetry was negative for A. fib. May benefit from outpatient event monitor as well as an echo if necessary. Inpatient E&M: [id number] [facility]
== END 2020-11-08 15:58 | disposition home or self-care (01) | DRG 69 ==
LOC: ED 18:11 → PCU 19:41
PROVIDERS: Admitting Provider Internal Medicine; Emergency Provider Emergency Medicine; PCP Family Medicine; Visit Provider Family Medicine
DX: G45.9 Transient cerebral ischemic attack, unspecified (principal); I45.10 Unspecified right bundle-branch block; I10 Essential (primary) hypertension; E78.5 Hyperlipidemia, unspecified; E66.9 Obesity, unspecified; Z68.34 Body mass index [BMI] 34.0-34.9, adult; Z79.82 Long term (current) use of aspirin; Z79.899 Other long term (current) drug therapy; Z86.73 Personal history of transient ischemic attack (TIA), and cerebral infarction without residual deficits
CPT/HCPCS: 36415; 70450; 70496; 70498; 70551; 71045; 80048; 80053; 80061; 80076; 84484; 85025; 85610; 85730; 92523; 93005; 97802; 99251; 99285; Q9967; A4216; G0463